=== PATIENT | female | born 1980 | race Hispanic/Latino ===

== ENCOUNTER 2024-08-21 18:22 | Emergency (ER) | payer SELFPAY ==
[~2024-08-21] VITALS: Ht 154.9 cm; Wt 104.3 kg
[2024-08-21] MEDS: LACTATED RINGERS 1000ML 1,000 ML IV STA (20:08)
[2024-08-21 20:44] LABS: BASOPHILS # (AUTO) 0.03 K/uL (0.00-0.20); BASOPHILS % (AUTO) 0.3 % (0.0-5.0); EOSINOPHILS # (AUTO) 0.14 K/uL (0.00-0.70); EOSINOPHILS % (AUTO) 1.6 % (0.0-8.0); HEMATOCRIT 37.4 % (36-48); IMMATURE GRANULOCYTE ABSOLUTE 0.03 K/uL (0-1); LYMPHOCYTES # (AUTO) 1.8 K/uL (1.0-4.8); LYMPHOCYTES % (AUTO) 19.8 % (21.0-51.0); MEAN CORPUSCULAR HEMOGLOBIN 27.9 pg (27.0-33.0); MEAN CORPUSCULAR HGB CONC 33.4 g/dL (32.0-36.0); MEAN CORPUSCULAR VOLUME 83.5 fL (79-99); MONOCYTES # (AUTO) 0.5 K/uL (0.1-1.0); MONOCYTES % (AUTO) 5.1 % (3.0-13.0); NEUTROPHILS # (AUTO) 6.5 K/uL (1.8-7.7); NEUTROPHILS % (AUTO) 72.9 % (40.0-77.0); PLATELET COUNT (AUTO) 308 K/uL (130-400); RED BLOOD CELL COUNT(AUTO) 4.48 MIL/uL (4.00-5.50); RED CELL DISTRIBUTION WIDTH 13.1 % (11.0-15.5)
[2024-08-21 20:53] LABS: CREATININE 0.8 mg/dL (0.5-1.0); POTASSIUM 3.9 mmol/L (3.5-5.1)
[2024-08-21 21:03] LABS: ALBUMIN 3.7 g/dL (3.5-5.0); BILIRUBIN,TOTAL 0.5 mg/dL (0.2-1.0); TOTAL PROTEIN, SERUM 7.8 g/dL (6.0-8.3)
[2024-08-21 21:13] LABS: ADD UA MICROSCOPIC NO; APPEARANCE,URINE CLEAR (CLEAR); BILIRUBIN,URINE NEGATIVE (NEGATIVE); COLOR,URINE YELLOW (YELLOW); GLUCOSE, URINE (UA) NEGATIVE (NEGATIVE); KETONES,URINE NEGATIVE (NEGATIVE); LEUKOCYTE ESTERASE ,URINE NEGATIVE Leu/uL (NEGATIVE); NITRATE,URINE NEGATIVE (NEGATIVE); OCCULT BLOOD,URINE NEGATIVE (NEGATIVE); PROTEIN,URINE NEGATIVE (NEGATIVE); UROBILINOGEN,URINE 0.2 mg/dL (0.2-1.0)
[2024-08-21] MEDS: ondanSETRON 4MG INJ IVP STA (22:17)
[2024-08-21] MEDS: ketOROlac 15MG/ML VIAL (15MG/ML) IV STA (22:17)
[2024-08-21] MEDS ORDERED: IOHEXOL-350 75 ML VIAL IV ONE (22:32)
[2024-08-22] MEDS: DICYCLOMINE HCL 20 MG TAB PO STA (00:27)
[2024-08-22 00:29] VITALS: BP 140/80; PULSE 74; RESP 20; TEMP 98.6; O2SAT 100
[2024-08-22] MEDS: FAMOTIDINE 20MG VIAL IV STA (00:29)
== END 2024-08-22 00:31 | disposition home or self-care (01) ==
LOC: EDH 18:22
DX: R10.9 Unspecified abdominal pain (principal); R07.9 Chest pain, unspecified; R30.0 Dysuria; K59.00 Constipation, unspecified; Z88.5 Allergy status to narcotic agent; Z90.49 Acquired absence of other specified parts of digestive tract; Z98.890 Other specified postprocedural states
CPT/HCPCS: 99285; 74177; 96374; 96361; 96375 ×2; 84484; 80053; 85025; 81003; 36415; 93005; J7120; J2405; J1885; Q9967; J3490

== ENCOUNTER 2025-07-20 13:13 | Emergency (ER) | payer SELFPAY ==
[~2025-07-20] VITALS: Ht 154.9 cm; Wt 109.1 kg
[2025-07-20] MEDS ORDERED: FAMOTIDINE 20MG VIAL IV ONE (13:30)
--- NOTE | 2025-07-20 14:18 | ERN ---
General Chief Complaint: Skin Rash/Abscess Stated Complaint: RASH Time Seen by MD: 13:14 Source: patient History of Present Illness Initial Comments 45-year-old female whose only prior medical history is anxiety comes in with a rash on all four of her extremities. She has no prior history of this rash. She is wondering if changing the way she is drying her clothes maybe the cause as she has drying them outside now. Her has a similar rash that started at the exact same time as hers. Patient also has new onset stuffiness in her left ear. She has had vertigo for several years now that this is the 1st time that she has experienced a fullness in her left ear. Allergies: Coded Allergies: codeine (Unverified Allergy, Unknown, 08/21/24) Past Medical History Past Medical History: Anxiety Past Surgical History: Cholecystectomy Surgical History Other: CYST ROS Dictation Review of systems is otherwise negative. Physical Exam Ear, Nose, Throat: (+) normal TM Ear, Nose, Throat Comment Left external ear canal with large amounts of cerumen Skin Comment Patient has rashes in her groin area and her lower abdomen. Does appear to be eczema but it also appears like a staph after of an eczema as well. Results Laboratory and Microbiology Lab and Micro Result Laboratory Tests Test 07/20/25 13:47 White Blood Count 7.6 K/uL (4.8-10.8) Red Blood Count 4.56 MIL/uL (4.00-5.50) Hemoglobin 13.0 g/dL (12.0-16.0) Hematocrit 38.8 % (36-48) Mean Corpuscular Volume 85.1 fL (79-99) Mean Corpuscular Hemoglobin 28.5 pg (27.0-33.0) Mean Corpuscular Hemoglobin Concent 33.5 g/dL (32.0-36.0) Red Cell Distribution Width 13.2 % (11.0-15.5) Platelet Count 295 K/uL (130-400) Mean Platelet Volume 10.8 fL (7.5-10.5) H Immature Granulocyte % (Auto) 0.5 % (0-1) Neutrophils (%) (Auto) 60.4 % (40.0-77.0) Lymphocytes (%) (Auto) 28.8 % (21.0-51.0) Monocytes (%) (Auto) 7.4 % (3.0-13.0) Eosinophils (%) (Auto) 2.5 % (0.0-8.0) Basophils (%) (Auto) 0.4 % (0.0-5.0) Neutrophils # (Auto) 4.6 K/uL (1.8-7.7) Lymphocytes # (Auto) 2.2 K/uL (1.0-4.8) Monocytes # (Auto) 0.6 K/uL (0.1-1.0) Eosinophils # (Auto) 0.19 K/uL (0.00-0.70) Basophils # (Auto) 0.03 K/uL (0.00-0.20) Absolute Immature Granulocyte (auto 0.04 K/uL (0-1) Nucleated Red Blood Cells 0.0 % (0.0-0.19) MDM MDM: Differential diagnosis: Environmental allergy versus poison ray versus staph eczema versus a yeast. Rationale: Tests considered and ordered secondary to shared decision making include: Previous outside records reviewed: Old ER visits. Risk of complication and/or morbidity or mortality of patient management: None Medications-Per medication reconciliation Need for hospitalization: Patient does meet criteria for hospitalization. Need for emergency major/minor surgery: No There are no social concerns with this patient. Prescription drug management Prescriptions will include symptomatic care Patient's prior external medical records from other ER visits were reviewed by me as indicated. Prior testing and results from previous visits were reviewed. Prior tests were taken into account with medical decision making and resource utilization, independent historian/historians were used to obtain complete medical history. I independently interpreted the test that were performed, results were reviewed by me and considered findings on radiology if ordered. Your laboratory studies I normal. I do not see or signs of an allergic reaction. ED Course Orders Procedure Category Date Status Time Cbc With Differential LAB 07/20/25 Complete 13:30 Cefazolin Sodium 1 Gm PHA 07/20/25 Complete Vial (Ancef 1 Gm V 13:30 Famotidine 20mg Vial PHA 07/20/25 Complete (Pepcid 20mg Vial) 13:30 Methylprednisolone PHA 07/20/25 Complete Succ 125mg (Solu-Medr 13:30 Diphenhydramine Hcl PHA 07/20/25 Complete (Benadryl Inj) 13:30 Current Medications Medications (Trade) Dose Ordered Sig/Valentin Route PRN Reason Start Time Stop Time Status Last Admin Dose Admin Cefazolin Sodium (ANCEF 1 gm vial) 1 gm ONCE STAT IVP 07/20/25 13:30 07/20/25 13:33 DC 07/20/25 14:21 Diphenhydramine HCl (BENAdryl INJ) 50 mg ONCE ONCE IV 07/20/25 13:30 07/20/25 14:20 DC Famotidine (Pepcid 20mg Vial) 20 mg ONCE ONCE IV 07/20/25 13:30 07/20/25 14:20 DC Methylprednisolone Sodium Succinate (Solu-medROL 125MG) 125 mg ONCE ONCE IVP 07/20/25 13:30 07/20/25 14:20 DC Vital Signs Date Time Temp Pulse Resp B/P (MAP) Pulse Ox O2 Delivery O2 Flow Rate FiO2 07/20/25 15:42 98.8 84 18 142/78 97 Room Air* 0 07/20/25 14:19 98.8 92 18 150/85 97 Room Air* 0 07/20/25 13:17 99.0 94 18 155/89 97 Room Air* 0 07/20/25 13:14 99.0 94 18 155/89 97 Room Air 0 DX & DISP Disposition: Discharge Departure Impression: Primary Impression: Rash Additional Impressions: Eczema, Staphylococcal infection of skin Condition: Stable Scripts Mupirocin Calcium (Mupirocin) 2 % Cream..g. 1 APPL TP TID for 7 Days, #15 GM 0 Refills Prov: EDGAR ALARCON MD 07/20/25 Additional Instructions: I have written a prescription for an antibiotic ointment. If this does not help clean up the rash then you may need to try an antifungal cream. Given that you and your have the same rash at the same time I am concerned of an environmental or an infectious cause. Please follow-up with the primary care physician or leather heel breaster if the rashes do not resolve quickly. Referrals: SELF,REFERRAL (PCP) EDGAR ALARCON MD Jul 20, 2025 14:18
[2025-07-20 14:19] LABS: IMMATURE GRANULOCYTE ABSOLUTE 0.04 K/uL (0-1); NUCLEATED RED BLOOD CELLS 0.0 % (0.0-0.19); PLATELET COUNT (AUTO) 295 K/uL (130-400); RED BLOOD CELL COUNT(AUTO) 4.56 MIL/uL (4.00-5.50); RED CELL DISTRIBUTION WIDTH 13.2 % (11.0-15.5); WHITE BLOOD COUNT (AUTO) 7.6 K/uL (4.8-10.8)
[2025-07-20 15:42] VITALS: BP 142/78; PULSE 84; RESP 18; TEMP 98.8; O2SAT 97
[2025-07-20] MEDS ORDERED: MUPI15CR12 TP (16:27)
== END 2025-07-20 16:35 | disposition home or self-care (01) ==
LOC: EDH 13:13
DX: R21 Rash and other nonspecific skin eruption (principal); L08.9 Local infection of the skin and subcutaneous tissue, unspecified; B95.8 Unspecified staphylococcus as the cause of diseases classified elsewhere; L30.9 Dermatitis, unspecified; Z88.5 Allergy status to narcotic agent; Z90.49 Acquired absence of other specified parts of digestive tract
CPT/HCPCS: 99283; 96374; 85025; 36415; J0690